=== PATIENT | male | born 1995 | race Caucasian/White ===

== ENCOUNTER 2017-03-12 20:09 | Emergency (ER) | payer OTHER ==
--- NOTE | 2017-03-12 21:11 | ED ---
Chest Pain HPI - General Chief Complaint: Chest Pain Stated Complaint: Chest Pain Time Seen by Provider: 03/12/17 20:43 Source: patient Mode of arrival: ambulatory Limitations: no limitations - History of Present Illness Initial Comments: 9 PM patient is a 21-year-old male who presents with a chief complaint of chest pain. The patient states that this chest pain has been going on intermittently for 1 week. The patient recognizes that it is better in the morning, but progressively gets worse during his workday. He cannot specifically remember any aggravating or alleviating factors. he states he feels better in the morning. Timing is intermittent. Patient denies any past medical history including personal cardiac history, family cardiac history, diabetes, hypertension, hyperlipidemia. Patient is perc negative. MD Complaint: chest pain Onset/Timin -: week(s) Onset: other (Gradually worsening throughout the day) Pain Location: left chest (Parasternal) Pain Radiation: none Severity: moderate Quality: aching Consistency: intermittent Improves With: nothing Worsens With: nothing Context: other (Physical labor, stress with new baby) Treatments Prior to Arrival: none - Related Data Home Medications Medication Instructions Recorded Confirmed No Known Home Medications [No 03/12/17 03/12/17 Known Home Medications] Allergies Allergy/AdvReac Type Severity Reaction Status Date / Time Sulfa (Sulfonamide Allergy Unknown Verified 03/12/17 20:43 Antibiotics) Childhood Review of Systems ROS Statement: Those systems with pertinent positive or pertinent negative responses have been documented in the HPI. ROS Other: All systems not noted in ROS Statement are negative. EKG Findings - EKG Results: EKG: interpreted by ER[facility] (EKG performed at 2031 shows normal sinus rhythm with a rate of 67 bpm. Intervals appear to be within normal limits. EKG is otherwise nonspecific.) Past Medical History Past Medical History: Asthma Additional Past Medical History / Comment(s): asthma as child History of Any Multi-Drug Resistant Organisms: None Reported Past Surgical History: No Surgical Hx Reported Past Psychological History: No Psychological Hx Reported Smoking Status: Current every day smoker Past Alcohol Use History: Occasional Past Drug Use History: Marijuana General Exam - General Exam Comments Initial Comments: Patient has reproducible pain to palpation of the sternal costal junction on the left. Limitations: no limitations General appearance: alert, in no apparent distress Head exam: Present: atraumatic, normocephalic Eye exam: Present: normal appearance ENT exam: Present: mucous membranes moist Neck exam: Present: normal inspection Respiratory exam: Present: normal lung sounds bilaterally Cardiovascular Exam: Present: regular rate, normal rhythm GI/Abdominal exam: Present: soft (Nontender) Rectal exam: Present: deferred Extremities exam: Present: normal inspection (There is no swelling or edema in the lower extremities.), normal capillary refill (Patient has 2+ palpable pulses bilaterally radial, and bilateral dorsalis pedis) Neurological exam: Present: alert, oriented X3 Psychiatric exam: Present: normal affect, normal mood Skin exam: Present: warm, dry Course Vital Signs 03/12/17 03/12/17 20:13 20:30 Temperature 98.6 F Pulse Rate 77 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 States this pain is intermittent. History and physical exam are mostly consistent with costochondritis. Declining anything for pain at this time. EKG performed at 2031 shows normal sinus rhythm without evidence of ST elevation. Segments appear to be within normal limits, EKG is otherwise nonspecific. Patient is perc negative, PE as cause of chest pain is highly unlikely at this time. Chest x-ray does not show any acute process. At this time, patient is likely suffering from costochondritis. Patient was instructed to follow-up with his primary care physician, or to return to the emergency department if his symptoms worsen. Patient was prescribed naproxen for pain relief. - PERC Rule Heart Rate < 100: (0) No g: (0) No No Prior History pf DVT/PE: (0) No No Recent Trauma or Surgery: (0) No Hemoptysis: (0) No No Exogenous Estrogen: (0) No No Clinical Signs Suggesting DVT: (0) No Disposition Clinical Impression: Costochondritis, acute Disposition: HOME SELF-CARE Condition: Good Instructions: Costochondritis (ED), Chest Pain (ED) Referrals: None,Stated [Primary Care Provider] - 1-2 days
--- NOTE | 2017-03-12 21:17 | XR ---
EXAMINATION TYPE: XR chest 2V DATE OF EXAM: 03/12/2017 COMPARISON: NONE HISTORY: Intermittent chest pain for 1 week with some dyspnea TECHNIQUE: Frontal and lateral views of the chest are obtained. FINDINGS: There is no focal air space opacity, pleural effusion, or pneumothorax seen. The cardiac silhouette size is within normal limits. The osseous structures are intact. IMPRESSION: No acute cardiopulmonary process.
[2017-03-12 21:42] VITALS: BP 146/74; PULSE 61; RESP 18; TEMP 98.1
== END 2017-03-12 21:41 | disposition home or self-care (01) ==
LOC: EC 20:09
DX: M94.0 Chondrocostal junction syndrome [Tietze] (principal); F17.200 Nicotine dependence, unspecified, uncomplicated; Z88.2 Allergy status to sulfonamides
CPT/HCPCS: 71020; 93005; 99285